=== PATIENT | female | born 1980 | race Caucasian/White ===

== ENCOUNTER → 2017-07-07 | Outpatient (CLI) | payer OTHER | END | disposition home or self-care (01) | LOC: C.PAPS 09:52 | PROVIDERS: ATTEND Obstetrics & Gynecology | DX: Z12.4 Encounter for screening for malignant neoplasm of cervix (principal) ==

== ENCOUNTER → 2017-10-27 | Outpatient (CLI) | payer OTHER | END | disposition home or self-care (01) | LOC: C.LAB1850 12:06 | PROVIDERS: ATTEND Obstetrics & Gynecology | DX: O02.1 Missed abortion (principal) ==

== ENCOUNTER → 2017-11-06 | Outpatient (CLI) | payer OTHER | END | disposition home or self-care (01) | LOC: C.LAB1850 16:08 | PROVIDERS: ATTEND Obstetrics & Gynecology | DX: O02.1 Missed abortion (principal) ==

== ENCOUNTER 2019-05-08 07:34 | Inpatient (IN) ==
[2019-05-08] MEDS ORDERED: OXYTOCIN 30 UNITS/500 ML BAG IV PRN ×3 (08:06→16:40)
--- NOTE | 2019-05-08 08:11 | History & Physical Report ---
Date of Service May 08, 2019 Assessment & Plan (1) Post-dates : Akiko is a 38 yo here for IOL at 40w+ - will start pitocin for contraction augmentation - currently unsure about pain plan, considering epidural - anticipate spontaneous vaginal delivery History of Present Illness Primary Care Provider: NO PCP Akiko is a 38yo with an EDC of 05/05/19, currently at 40+ weeks gestational age who presents to labor and delivery for scheduled post-term induction. On the evening of 05/07/19 she had a cervical Ibrahim placed, which fell out at 9:30 pm on 05/07. This was complicated by AMA, which has been monitored with weekly NSTs since 36 weeks, all of which have been reactive. Only medication is PNV. She is feeling FM. She had a bloody show this morning around 6:30am. Feeling contractions every few minutes. No ROM. Labs Blood type: O+ Antibody Screen: neg H.6 Hct: 38.3 Plt: 226 Rubella: immune VDRL/RPR: non-reactive Gonorrhea: neg Chlamydia: neg GBS: neg HIV: neg HbsAq: neg Glucose Tolerance x2: normal Allergies Allergy/AdvReac Type Severity Reaction Status Date / Time No Known Drug Allergies Allergy Verified 05/07/19 09:31 Home Medications Home Medications Medication Instructions Recorded Confirmed Type prenat.vits,maria luisa,[id number] 1 tab PO DAILY 11/08/18 05/08/19 History calcium carbonate [Tums] 200 mg PO BID 05/08/19 05/08/19 History Patient History Medical History History of spontaneous History of varicella Surgical History S/P wisdom tooth extraction Family History Mother Kidney stones Father Prostate cancer Dyslipidemia Social History Preferred Language: Armenian Beliefs That Will Affect Care: None marital status: Current Living Situation: Spouse Feels Safe at Home: Yes Safety Concerns: Feels Safe At This Time Smoking Status: Never smoker Do You Dip or Chew Tobacco: No ; Second Hand Exposure: No ; Hx Alcohol Use: No Hx Substance Use: No Review of Systems no fever, no chills and no sweats no worsening vision no cough and no dyspnea no chest pain, no palpitations and no calf pain no nausea, no vomiting, no constipation and no diarrhea/loose stools no dysuria and no urinary frequency Physical Exam Constitutional: WD/WN, vitals as above Eyes: + anicteric sclerae Neck: normal visual inspection Respiratory: normal respiratory effort, lungs clear to auscultation does not use accessory muscles Auscultation: no crackles, no rales, no wheezes and no pleural rub Cardiovascular: Rate/Rhythm: regular rate and regular rhythm Heart Sounds: normal S1 and normal S2; no gallop, no murmur and no cardiac rub Gastrointestinal (Abdomen): Gravid. Uterus at term; + heart tones; vertex position. EFW 7 lbs Neurologic: awake; no focal motor deficits Psychiatric: A+Ox3, euthymic affect Genitourinary: OB Exam Monitor Tracing: + external FHT monitor used Cervical Exam: 3 cm/ 90 % effacement/ -2 station, soft and anterior Results & Data Vital Signs (Past 12 Hours) Vital Signs Pulse BP 05/08/19 07:52 80 135/80 Monitoring External Monitor Baseline HR: 140 bpm Variability: moderate Accelerations: 2 in 20 min Decelerations: none Category I Tocodynamometer Contractions: occurring every 5 minutes Supervising Physician Co-Signing Physician Notes Start pitocin. AROM at next exam. Epidural on request. Resident Activity Tracking Resident Involvement: Resident Care Provided Care Provided: OB Delivery
[2019-05-08 08:29] LABS: Hematocrit (blood only) 38.3 % (37-47); Hemoglobin 13.6 g/dL (12.0-16.0); Mean Corpuscular Hemoglobin 32.2 pg (25-34); Mean Corpuscular Volume 90.5 fL (80-100); Mean Platelet Volume 9.9 fL (7.4-10.4); Platelet Count 226 K/uL (130-400); RDW Coefficient of Variation 12.8 % (11.5-14.5); RDW Standard Deviation 41.9 fL (36.4-46.3); Red Blood Count 4.23 M/uL (4.2-5.4); White Blood Count 12.19 K/uL (4.8-10.8)
[2019-05-08 08:31] LABS: Mean Corpuscular Hgb Conc 35.5 g/dL (32-36)
[2019-05-08] MEDS: LACTATED RINGER'S 1,000 ML IV PRN ×2 (08:52→12:10)
[2019-05-08] MEDS ORDERED: fentaNYL citrate 100 MCG/2 ML VIAL ONE (11:27)
[2019-05-08] MEDS ORDERED: ePHEDrine sulfate 50 MG/ML AMP ONE (11:27)
[2019-05-08] MEDS ORDERED: BUPIVACAINE 0.25% 30 ML VIAL ONE (11:27)
[2019-05-08] MEDS ORDERED: fentaNYL 2MCG/ML ROPIV 1.25MG/ML 100 ML BAG EPI ONE (11:28)
[2019-05-08] MEDS ORDERED: ONDANSETRON INJ 2 MG/ML 2 ML VIAL IV PRN (11:51)
[2019-05-08] MEDS ORDERED: NALOXONE HCL 0.4 MG/1 ML VIAL/CARP IV PRN (11:51)
[2019-05-08] MEDS ORDERED: DiphenhydrAMINE HCL 50 MG/ML VIAL IV PRN (11:51)
[2019-05-08] MEDS ORDERED: fentaNYL 2MCG/ML ROPIV 1.25MG/ML 100 ML BAG EPI PRN (11:51)
[2019-05-08] MEDS ORDERED: NALOXONE HCL 1 MG in SODIUM CHLORIDE 0.9% 1000ML 1,000 ML IV PRN (11:51)
[2019-05-08] MEDS ORDERED: ePHEDrine sulfate 50 MG/ML AMP IV PRN (11:51)
[2019-05-08] MEDS ORDERED: NALBUPHINE HCL INJ 10 MG/ML AMP IV PRN (11:51)
--- NOTE | 2019-05-08 11:52 | Anesthesiology Consultation ---
Date of Service May 08, 2019 Assessment & Plan (1) Encounter for pre-operative examination: Chart Review Chart Review: Patient NOT seen in Pre Admission Testing and Acceptable Risk for Labor Epidural Consults Requested none History Height/Weight Height: 5 ft 5.5 in Weight: 78.471 kg Allergies Allergy/AdvReac Type Severity Reaction Status Date / Time No Known Drug Allergies Allergy Verified 05/07/19 09:31 Medications Home Medications Medication Instructions Recorded Confirmed Last Taken prenat.vits,maria luisa,[id number] 1 tab PO DAILY 11/08/18 05/08/19 05/07/19 23:00 calcium carbonate [Tums] 200 mg PO BID 05/08/19 05/08/19 05/07/19 23:00 Active Medications Generic Name Dose Route Start Last Admin Trade Name Freq PRN Reason Stop Dose Admin Lactated Ringer's 1,000 mls @ 125 mls/hr 05/08/19 08:06 05/08/19 11:24 Lr IV 05/10/19 08:05 999 mls/hr .Q8H PRN Infusion L&D Protocol Protocol Oxytocin 30 units in 500 mls @ 3 mls/hr 05/08/19 08:06 05/08/19 09:29 Pitocin IV 05/10/19 08:05 0.18 units/hr .Q24H PRN 3 mls/hr Labor Induction/Augmentation Titration Protocol 0.18 UNITS/HR Past Medical History Medical History History of spontaneous History of varicella Exercise / Class Metabolic Activity II 4-5 Yardwork/Stairs/Walk up hill Past Family History Family History Mother Kidney stones Father Prostate cancer Dyslipidemia Past Surgical History Surgical History S/P wisdom tooth extraction Past Anesthesia History No Hx of Anesthesia Complications and No Family Hx of Anesthesia Complications History of PONV No Hx of PONV and No Hx of Motion Sickness Social History Smoking Status: Never smoker Do You Dip or Chew Tobacco: No Hx Alcohol Use: No Hx Substance Use: No Physical Exam Vital Signs Last Vital Signs Temp 36.5 C 02/05/20 07:44 Pulse 72 05/08/19 11:17 Resp 20 05/08/19 07:44 BP 140/87 05/08/19 11:17 Testing Laboratory Results 05/08/19 08:15
--- NOTE | 2019-05-08 15:40 | Delivery Summary ---
Vaginal Delivery Summary Date of Service May 08, 2019 Vaginal Delivery Summary DIAGNOSES: 1. Pappas intrauterine at 40w3d gestation. 2. Induction of Labor. 3. Group B Streptococcus Neg. PROCEDURE: Spontaneous vaginal delivery and repair of second degree laceration. SURGEON: Arpita Huff MD. MEDIEVAL ENGLISH LITERATURE PROFESSOR: None. ESTIMATED BLOOD LOSS: 300 mL. COMPLICATIONS: None. PLACENTA: Spontaneous and intact with a 3-vessel cord. DISPOSITION: Stable to labor and delivery. DESCRIPTION: The patient pushed well and brought the head to in OA position. The infant's head was allowed to deliver with contraction force and no further active pushing, with the perineum protected during this time. The shoulders delivered easily with a maternal pushing effort. There was no nuchal cord. The right shoulder was anterior. The shoulders and body delivered without any difficulty, and the infant was placed on the maternal abdomen. It was vigorous and moving all extremities, and making respiratory efforts. The cord was doubly clamped by the MD and then cut by the MD. The placenta delivered spontaneously and was noted to be intact and with a 3VC. The cervix, vagina and perineum were examined and were found to have a second degree laceration which was repaired using vicryl in the usual manner. The fundus was firm and lochia minimal immediately after delivery.
--- NOTE | 2019-05-08 16:15 | Anesthesia Procedure Note ---
Date of Service May 08, 2019 Anesthesia Post Epidural Note Vital Signs Vital Signs: Temp Pulse Resp BP Pulse Ox 36.8 C 69 20 120/78 97 05/08/19 14:40 05/08/19 16:00 05/08/19 14:40 05/08/19 16:00 05/08/19 15:33 Pain Intensity Bilateral Back: Pain Intensity: 0 Notes Mental Status: alert / awake / arousable and participated in evaluation Patient Amnestic to Procedure: No Nausea / Vomiting: adequately controlled Pain: adequately controlled Airway Patency, RR, SpO2: stable & adequate BP & HR: stable & adequate Hydration State: stable & adequate Neuraxial Anesthesia: was administered and sensory block is resolving Anesthetic Complications: no major complications apparent and Pt Satisfied with anesthetic care Epidural: Removed without complications and With tip intact
[2019-05-08] MEDS ORDERED: DIPHTHERIA/TETANUS/PERTUSSIS 0.5 ML SYR/VIAL IM ONE (16:40)
[2019-05-08] MEDS ORDERED: SUPERCREAM 0.870% 15 GM JAR EXT PRN (16:40)
[2019-05-08] MEDS ORDERED: OXYCODONE/ACETAMINOPHEN 5mg/325mg TAB PO PRN (16:40)
[2019-05-08] MEDS ORDERED: BENZOCAINE 20% AER SPR 82.5 GM CAN EXT PRN (16:40)
[2019-05-08] MEDS ORDERED: LACTATED RINGER'S 1,000 ML IV SCH (16:40)
[2019-05-08] MEDS ORDERED: ACETAMINOPHEN 325 MG TAB PO PRN (16:40)
[2019-05-08] MEDS ORDERED: HYDROCORTISONE ACETATE 25 MG SUPP PR PRN (16:40)
[2019-05-08] MEDS: DOCUSATE SODIUM 100 MG CAP PO SCH (20:58)
[2019-05-08] MEDS: IBUPROFEN 600 MG TAB PO PRN (23:03)
[2019-05-09 06:26] LABS: Hematocrit (blood only) 36.6 % (37-47); Hemoglobin 12.8 g/dL (12.0-16.0); Mean Corpuscular Hemoglobin 32.2 pg (25-34); Mean Corpuscular Volume 92.2 fL (80-100); Mean Platelet Volume 9.7 fL (7.4-10.4); Platelet Count 214 K/uL (130-400); RDW Standard Deviation 43.7 fL (36.4-46.3); Red Blood Count 3.97 M/uL (4.2-5.4); White Blood Count 18.64 K/uL (4.8-10.8)
--- NOTE | 2019-05-09 06:26 | Obstetrical Progress Note ---
Date of Service May 09, 2019 Assessment & Plan (1) Status post vaginal delivery: Akiko is a 38 yo on PPD 1 after at 40w - GBS -, Blood Type O+, Rubella immune -Vitals reviewed and WNL -patient is doing clinically well continue routine post care - After discharge will have [address] Huff. Supervising Physician Co-Signing Physician Notes I have reviewed the resident's note and examined the patient myself, and agree with the note above. Subjective Ambulation: ambulating normally Voiding: no voiding problems Passing Gas:: Yes Diet Tolerance:: regular diet Lochia:: moderate Feeding Type:: breast feeding Review of Systems Constitutional: no fever, no chills and no sweats Eyes: no worsening vision Respiratory: no cough and no dyspnea Cardiovascular: no chest pain, no palpitations, no edema and no calf pain Gastrointestinal: no nausea and no vomiting Genitourinary: no dysuria and no urinary frequency Neurologic: no headache(s) Physical Exam Constitutional: WD/WN, vitals as above no acute distress Respiratory: normal respiratory effort, lungs clear to auscultation does not use accessory muscles Auscultation: no crackles, no rales, no rhonchi, no wheezes and no pleural rub Cardiovascular: Rate/Rhythm: regular rate and regular rhythm Heart Sounds: normal S1 and normal S2; no gallop, no murmur and no cardiac rub Extremities: no calf tenderness and no pedal edema Gastrointestinal (Abdomen): Inspection/Auscultation: normal bowel sounds; abdomen not distended Percussion/Palpation: abdomen soft Genitourinary: Uterus: fundus firm, palpable 1 cm below the umbilicus Results & Data Vital Signs (Past 12 Hours) Vital Signs Temp Pulse Resp BP 05/09/19 03:30 36.4 C L 77 18 109/76 05/08/19 23:00 36.6 C 83 18 126/87 05/08/19 20:31 36.5 C 76 18 126/81 Resident Activity Tracking Resident Involvement: Resident Care Provided Care Provided: OB Delivery
[2019-05-09] MEDS: IBUPROFEN 600 MG TAB PO PRN ×3 (06:38→20:49)
[2019-05-09] MEDS: PRENATAL VITAMIN 1 TAB PO SCH (07:55)
[2019-05-09] MEDS: DOCUSATE SODIUM 100 MG CAP PO SCH ×2 (07:55→20:49)
[2019-05-10] MEDS: IBUPROFEN 600 MG TAB PO PRN ×2 (01:08→05:50)
--- NOTE | 2019-05-10 06:39 | Obstetrical Progress Note ---
Date of Service May 10, 2019 Assessment & Plan (1) Status post vaginal delivery: Akiko is a 38 yo on PPD 2 after at 40w - GBS -, Blood Type O+, Rubella immune -Vitals reviewed and WNL -patient is doing clinically well Discharge instructions reviewed. - After discharge will have [address] Huff. Supervising Physician Co-Signing Physician Notes Resident Physician Supervision Note: I was present with Dr. Haile during the history and exam. I discussed the case with the resident and agree with the findings and plan as documented in the note. Any exceptions or clarifications are listed here: Patient doing well. She desires d/c home. f/u 6wks in office. pp instructions had been reviewed and she denies ?s. Documented By: Sandra Cunningham MD, FACOG Subjective Ambulation: ambulating normally Voiding: no voiding problems Passing Gas:: Yes Diet Tolerance:: regular diet Lochia:: mild Feeding Type:: breast feeding Review of Systems Constitutional: no fever, no chills and no sweats Eyes: no worsening vision Respiratory: no cough and no dyspnea Cardiovascular: no chest pain, no palpitations, no edema and no calf pain Gastrointestinal: no nausea and no vomiting Genitourinary: no dysuria and no urinary frequency Neurologic: no headache(s) Physical Exam Constitutional: WD/WN, vitals as above no acute distress Eyes: + anicteric sclerae Neck: normal visual inspection Respiratory: normal respiratory effort, lungs clear to auscultation does not use accessory muscles Auscultation: no crackles, no rales, no rhonchi, no wheezes and no pleural rub Cardiovascular: Rate/Rhythm: regular rate and regular rhythm Heart Sounds: normal S1 and normal S2; no gallop, no murmur and no cardiac rub Extremities: no calf tenderness and no pedal edema Gastrointestinal (Abdomen): Inspection/Auscultation: normal bowel sounds; abdomen not distended Percussion/Palpation: abdomen soft Neurologic: awake Psychiatric: A+Ox3, euthymic affect Genitourinary: Uterus: fundus firm, palpable 2 cm below the umbilicus Results & Data Vital Signs (Past 12 Hours) Vital Signs Temp Pulse Resp BP Pulse Ox 05/10/19 01:00 36.6 C 75 18 117/74 95 05/09/19 20:45 36.8 C 76 16 130/74 97 Resident Activity Tracking Resident Involvement: Resident Care Provided Care Provided: OB Delivery
[2019-05-10] MEDS: DOCUSATE SODIUM 100 MG CAP PO SCH (08:04)
[2019-05-10] MEDS: PRENATAL VITAMIN 1 TAB PO SCH (08:04)
== END 2019-05-10 12:30 | disposition home or self-care (01) | DRG 807 ==
LOC: 4S1 07:34 → 4S2 18:18